=== PATIENT | female | born 1995 | race Caucasian/White ===

== ENCOUNTER 2016-10-31 11:42 | Emergency (ER) | payer MEDICAID ==
[~2016-10-31] VITALS: Ht 162.6 cm; Wt 127.3 kg
[~2016-10-31 11:42] MED LIST: CYMBALTA 60MG60 MG PO; DESYREL 50MG50 MG; GEODON20 MG PO; IBU800 M1 PO; KEPPRA 500MG500 MG PO; KEPPRA1000 MG PO; KLONOPIN 0.5MG0.5 MG PO; KLONOPIN 1MG1 MG PO; KLONOPIN2 MG PO; LAMICTAL 100MG100 MG PO; LAMICTAL XR300 MG PO; LAMICTAL XR50 MG PO; LEVEMIR100 U/ML SQ; LEXAPRO20 MG PO; LYRICA 100MG C100 M1 PO; LYRICA 150MG C150 MG PO; NOVOLOG 100U100 U/M1 SQ; PAXIL 20MG20 MG PO; PAXIL40 MG PO; PERCOCET 325 MG1 TA2 PO; PRENATAL1 TA7 PO; PROAIR HFA0.09 MG/AC IH; STRATTERA 10MG10 MG PO; TOPAMAX 100MG100 M1 PO; TOPAMAX 25MG25 M1 PO; TOPAMAX200 MG PO; ZOLOFT 50MG50 MG PO
[2016-10-31 11:46] VITALS: BP 168/82; TEMP 98.6
[2016-10-31 12:55] LABS: PH 5 (5-8); SQUAMOUS EPITHELIAL 0-2 /hpf; URINE APPEARANCE Hazy; URINE BACTERIA Rare /hpf; URINE BILIRUBIN Negative (NEGATIVE); URINE BLOOD Negative (NEGATIVE); URINE COLOR Amber; URINE GLUCOSE Negative (NEGATIVE); URINE KETONE Negative (NEGATIVE); URINE RBC 0-2 /hpf; URINE UROBILINOGEN Negative (NEGATIVE); URINE WBC 0-2 /hpf
[2016-10-31 13:14] LABS: BASO % 0.3 % (0.0-2.0); EOS # 0.2 (0.0-0.7); EOS % 1.3 % (0-4.0); GRAN # 11.4 (1.4-6.5); GRAN % 73.6 % (42.2-75.2); HEMATOCRIT 40.6 % (37.0-47.0); HEMOGLOBIN 13.7 g/dl (12.5-16.0); LYMPH # 3.1 (1.2-3.4); LYMPH % 20.2 % (20.0-51.0); MEAN CELL VOLUME 79 fl (80.0-100.0); MEAN CORPUSCULAR HEMOGLOBIN 27 pg (27.0-31.0); MEAN CORPUSCULAR HGB CONC 34 g/dl (33.0-37.0); MEAN PLATELET VOLUME 10.8 fl (7.4-10.4); MONO # 0.7 (0.1-0.6); MONO % 4.3 % (1.7-9.3); PLATELET COUNT 346 K/mm3 (130-400); RED BLOOD COUNT 5.16 M/mm3 (4.10-5.30); REDCELL DISTRIBUTION WIDTH-CV 14.3 % (11.5-14.5); WHITE BLOOD COUNT 15.5 K/mm3 (4.8-10.8)
[2016-10-31 13:21] LABS: ADJUSTED CALCIUM 9.3 mg/dL (8.4-10.2); ALBUMIN 4.1 gm/dL (3.5-5.0); C-REACTIVE PROTEIN 2.4 mg/dL (0.0-0.9); CALCIUM 9.4 mg/dL (8.4-10.2); CREATININE, serum 0.69 mg/dL (0.52-1.25); POTASSIUM 4.2 mmol/L (3.4-5.0); TOTAL PROTEIN 7.4 gm/dL (6.4-8.2)
[2016-10-31 13:46] LABS: ADD PATHOLOGY DIFF REVIEW NO
[2016-10-31 13:55] LABS: EOSINOPHIL 3 % (0-4); NEUTROPHILS 69 % (42.0-75.2); TOTAL CELLS COUNTED 100
[2016-10-31 13:56] LABS: POIKILOCYTOSIS 1+
[2016-10-31] MEDS ORDERED: AMOXICILLIN 8751 TAB PO (15:15)
[2016-10-31 15:37] VITALS: PULSE 79
== END 2016-10-31 15:37 | disposition home or self-care (01) ==
LOC: COL.ER 11:42
PROVIDERS: Family Medicine
DX: G40.909 Epilepsy, unspecified, not intractable, without status epilepticus (principal); K80.20 Calculus of gallbladder without cholecystitis without obstruction; E11.9 Type 2 diabetes mellitus without complications; Z79.4 Long term (current) use of insulin

== ENCOUNTER 2016-11-03 21:31 | Inpatient (IN) | payer MEDICAID ==
[~2016-11-03] VITALS: Ht 162.6 cm; Wt 132.8 kg
[~2016-11-03 21:31] MED LIST changes: +AMOXICILLIN 8751 TAB PO
[2016-11-03 21:59] VITALS: BP 141/76; PULSE 91; TEMP 97.9
[2016-11-03] MEDS ORDERED: EFFEXOR 75M75 MG/TAB PO (22:24)
[2016-11-03] MEDS ORDERED: KEPPRA 500MG500 MG PO (22:25)
[2016-11-03] MEDS ORDERED: LATUDA40 MG PO (22:25)
[2016-11-03] MEDS ORDERED: MINIPRESS2 MG PO (22:27)
[2016-11-03] MEDS ORDERED: MULTIPLE VITAMI1 CAP PO (22:28)
[2016-11-03] MEDS ORDERED: SPRINTEC 35 MCG1 TAB PO (22:28)
[2016-11-03] MEDS ORDERED: NORCO 325 MG-51 TAB PO (22:32)
[2016-11-03] MEDS ORDERED: PROTONIX20 MG PO (22:34)
[2016-11-03] MEDS ORDERED: ZOFRAN 4MG T4 MG/TAB PO (22:35)
[2016-11-04] VITALS (9 sets, daily range): BP systolic 106–130; BP diastolic 39–74; PULSE 65–84; TEMP 97.6–98.1
[2016-11-04 04:25] LABS: BASO % 0.2 % (0.0-2.0); EOS # 0.2 (0.0-0.7); GRAN # 7.8 (1.4-6.5); GRAN % 77.5 % (42.2-75.2); HEMATOCRIT 43.9 % (37.0-47.0); HEMOGLOBIN 14.5 g/dl (12.5-16.0); LYMPH # 1.5 (1.2-3.4); LYMPH % 15.1 % (20.0-51.0); MEAN CELL VOLUME 79 fl (80.0-100.0); MEAN CORPUSCULAR HEMOGLOBIN 26 pg (27.0-31.0); MEAN CORPUSCULAR HGB CONC 33 g/dl (33.0-37.0); MEAN PLATELET VOLUME 11.5 fl (7.4-10.4); MONO # 0.5 (0.1-0.6); MONO % 4.9 % (1.7-9.3); PLATELET COUNT 268 K/mm3 (130-400); RED BLOOD COUNT 5.53 M/mm3 (4.10-5.30); REDCELL DISTRIBUTION WIDTH-CV 14.6 % (11.5-14.5)
[2016-11-04 04:45] LABS: ADJUSTED CALCIUM 9.2 mg/dL (8.4-10.2); ALBUMIN 3.7 gm/dL (3.5-5.0); BILIRUBIN,TOTAL 2.3 mg/dL (0.0-1.0); CREATININE, serum 0.68 mg/dL (0.52-1.25); TOTAL PROTEIN 6.9 gm/dL (6.4-8.2)
[2016-11-05] VITALS: BP 100/47; PULSE 80; TEMP 97.8
[2016-11-05 04:11] VITALS: BP 129/75; PULSE 78; TEMP 98.1
[2016-11-05 07:08] LABS: BASO % 0.2 % (0.0-2.0); EOS % 0.2 % (0-4.0); GRAN # 10.6 (1.4-6.5); GRAN % 77.1 % (42.2-75.2); LYMPH # 2.3 (1.2-3.4); LYMPH % 16.7 % (20.0-51.0); MEAN CELL VOLUME 81 fl (80.0-100.0); MEAN CORPUSCULAR HGB CONC 33 g/dl (33.0-37.0); MEAN PLATELET VOLUME 11.4 fl (7.4-10.4); MONO # 0.8 (0.1-0.6); MONO % 5.4 % (1.7-9.3); PLATELET COUNT 300 K/mm3 (130-400); RED BLOOD COUNT 4.55 M/mm3 (4.10-5.30); REDCELL DISTRIBUTION WIDTH-CV 15.1 % (11.5-14.5); WHITE BLOOD COUNT 13.8 K/mm3 (4.8-10.8)
[2016-11-05 07:17] LABS: HEMATOCRIT 36.7 % (37.0-47.0); HEMOGLOBIN 12.1 g/dl (12.5-16.0); MEAN CORPUSCULAR HEMOGLOBIN 27 pg (27.0-31.0)
[2016-11-05 07:18] LABS: ADJUSTED CALCIUM 9.2 mg/dL (8.4-10.2); ALBUMIN 3.3 gm/dL (3.5-5.0); BILIRUBIN,TOTAL 1.3 mg/dL (0.0-1.0); CALCIUM 8.6 mg/dL (8.4-10.2); CREATININE, serum 0.65 mg/dL (0.52-1.25); POTASSIUM 3.5 mmol/L (3.4-5.0); TOTAL PROTEIN 6.3 gm/dL (6.4-8.2)
[2016-11-05] MEDS ORDERED: PERCOCET 325 MG1 TA2 PO (11:44)
[2016-11-05] MEDS ORDERED: KEPPRA1000 MG PO (12:12)
[2016-11-05] MEDS ORDERED: CIPRO 500MG TA500 MG PO (12:38)
[2016-11-05] MEDS ORDERED: FLAGYL500 MG PO (12:38)
[2016-11-05 13:18] VITALS: BP 140/87; PULSE 98
== END 2016-11-05 14:59 | disposition home or self-care (01) | DRG 419 ==
LOC: SURG 21:31
PROVIDERS: Family Medicine; Surgery
PROC: BF131ZZ Fluoroscopy of Gallbladder and Bile Ducts using Low Osmolar Contrast (ICD-10-PCS; 2016-11-04)
PROC: 0FT44ZZ Resection of Gallbladder, Percutaneous Endoscopic Approach (ICD-10-PCS; principal; 2016-11-04 12:00)
DX: K80.43 Calculus of bile duct with acute cholecystitis with obstruction (principal); G40.909 Epilepsy, unspecified, not intractable, without status epilepticus; F43.10 Post-traumatic stress disorder, unspecified; F17.210 Nicotine dependence, cigarettes, uncomplicated
CPT/HCPCS: 99222-AI; 99233-AI; 99239; C1769; J0330; J0690; J1100; J1610; J1885; J1953; J2250; J2270; J2405; J2550; J2704; J2710; J3010; J7120; Q9967

== ENCOUNTER 2016-12-01 17:02 | Emergency (ER) | payer MEDICAID ==
[~2016-12-01] VITALS: Ht 162.6 cm; Wt 127.3 kg
[~2016-12-01 17:02] MED LIST changes: +CIPRO 500MG TA500 MG PO; +EFFEXOR 75M75 MG/TAB PO; +FLAGYL500 MG PO; +LATUDA40 MG PO; +MINIPRESS2 MG PO; +MULTIPLE VITAMI1 CAP PO; +NORCO 325 MG-51 TAB PO; +PROTONIX20 MG PO; +SPRINTEC 35 MCG1 TAB PO; +ZOFRAN 4MG T4 MG/TAB PO
[2016-12-01 17:07] VITALS: BP 139/77; PULSE 95; TEMP 98.1
[2016-12-01] MEDS ORDERED: NORCO 325 MG-51 TAB PO (17:52)
[2016-12-01] MEDS ORDERED: ZOVIRAX51 TP (17:52)
== END 2016-12-01 17:56 | disposition home or self-care (01) ==
LOC: COL.ER 17:02
DX: L73.9 Follicular disorder, unspecified (principal); B00.89 Other herpesviral infection; L01.00 Impetigo, unspecified; F41.9 Anxiety disorder, unspecified; F32.9 Major depressive disorder, single episode, unspecified; F43.10 Post-traumatic stress disorder, unspecified; G40.909 Epilepsy, unspecified, not intractable, without status epilepticus

== ENCOUNTER 2016-12-07 08:00 | Emergency (ER) | payer MEDICAID ==
[~2016-12-07] VITALS: Ht 162.6 cm; Wt 127.3 kg
[~2016-12-07 08:00] MED LIST changes: +ZOVIRAX51 TP
[2016-12-07 08:02] VITALS: TEMP 98.2
[2016-12-07] MEDS ORDERED: PREDNISONE20 MG PO (09:00)
[2016-12-07] MEDS ORDERED: BENADRYL25 M2 PO (09:10)
[2016-12-07] MEDS ORDERED: PEPCID 20MG TAB20 MG PO (09:10)
[2016-12-07 09:21] VITALS: BP 123/70; PULSE 90
== END 2016-12-07 09:21 | disposition home or self-care (01) ==
LOC: COL.ER 08:00
DX: R21 Rash and other nonspecific skin eruption (principal); I10 Essential (primary) hypertension; F31.9 Bipolar disorder, unspecified; F17.210 Nicotine dependence, cigarettes, uncomplicated; Z86.73 Personal history of transient ischemic attack (TIA), and cerebral infarction without residual deficits
CPT/HCPCS: J0561

== ENCOUNTER 2017-06-05 18:35 | Emergency (ER) | payer SELFPAY ==
[~2017-06-05] VITALS: Ht 162.6 cm; Wt 127.3 kg
[~2017-06-05 18:35] MED LIST changes: +BENADRYL25 M2 PO; +PEPCID 20MG TAB20 MG PO; +PREDNISONE20 MG PO
[2017-06-05 18:37] VITALS: BP 142/78; PULSE 98; TEMP 98.8
[2017-06-05] MEDS ORDERED: NORCO 325 MG-51 TAB PO (19:58)
== END 2017-06-05 20:05 | disposition home or self-care (01) ==
LOC: COL.ER 18:35
DX: R68.84 Jaw pain (principal); F17.210 Nicotine dependence, cigarettes, uncomplicated

== ENCOUNTER 2017-06-29 20:33 | Emergency (ER) | payer SELFPAY ==
[~2017-06-29] VITALS: Ht 162.6 cm; Wt 127.3 kg
[2017-06-29 20:40] VITALS: BP 148/95; TEMP 98.4
[2017-06-29] MEDS ORDERED: PEN-VEE K500 MG PO (21:11)
[2017-06-29 21:20] VITALS: PULSE 83
== END 2017-06-29 21:19 | disposition home or self-care (01) ==
LOC: COL.ER 20:33
DX: K08.89 Other specified disorders of teeth and supporting structures (principal); F17.210 Nicotine dependence, cigarettes, uncomplicated

== ENCOUNTER 2017-07-19 10:35 | Emergency (ER) | payer SELFPAY ==
[~2017-07-19] VITALS: Ht 162.6 cm; Wt 127.3 kg
[~2017-07-19 10:35] MED LIST changes: +PEN-VEE K500 MG PO
[2017-07-19 10:50] VITALS: BP 155/85; TEMP 98.2
[2017-07-19 11:46] LABS: COLLECTION METHOD CLEAN CATCH
[2017-07-19 11:52] LABS: PH 5 (5-8); SQUAMOUS EPITHELIAL None Seen /hpf; URINE APPEARANCE Clear; URINE BACTERIA None Seen /hpf; URINE BILIRUBIN Negative (NEGATIVE); URINE BLOOD 2+ (NEGATIVE); URINE COLOR Yellow; URINE GLUCOSE Negative (NEGATIVE); URINE KETONE Negative (NEGATIVE); URINE LEUKOCYTE ESTERASE Negative (NEGATIVE); URINE NITRATE Negative (NEGATIVE); URINE PROTEIN(semi-quant) Negative (NEGATIVE); URINE RBC 0-2 /hpf; URINE UROBILINOGEN Negative (NEGATIVE)
[2017-07-19 13:39] VITALS: PULSE 82
== END 2017-07-19 13:32 | disposition home or self-care (01) ==
LOC: COL.ER 10:35
PROVIDERS: Physician Assistant
DX: S06.0X0A Concussion without loss of consciousness, initial encounter (principal); S00.83XA Contusion of other part of head, initial encounter; G40.909 Epilepsy, unspecified, not intractable, without status epilepticus; F17.210 Nicotine dependence, cigarettes, uncomplicated; W22.09XA Striking against other stationary object, initial encounter

== ENCOUNTER 2017-08-24 13:05 | Day surgery (SDC) | payer BC ==
[~2017-08-24] VITALS: Ht 162.6 cm; Wt 136.7 kg
[2017-08-24 14:07] VITALS: BP 145/101; PULSE 88; TEMP 97.9
[2017-08-24] MEDS ORDERED: EFFEXOR-XR150 MG PO (14:26)
[2017-08-24] MEDS ORDERED: LYRICA 100MG C100 M1 PO (14:27)
[2017-08-24] MEDS ORDERED: DEPAKOTE ER 50500 MG PO (14:28)
[2017-08-24] MEDS ORDERED: VALIUM 10MG10 MG/TAB PO (14:28)
[2017-08-24 16:47] VITALS: TEMP 97.3
[2017-08-24 16:50] VITALS: BP 130/79; PULSE 66
[2017-08-24 17:05] VITALS: BP 135/83; PULSE 68
[2017-08-24 17:20] VITALS: BP 138/95; PULSE 95
== END 2017-08-24 17:31 | disposition home or self-care (01) ==
LOC: SDCO 13:05
DX: K04.7 Periapical abscess without sinus (principal); K00.6 Disturbances in tooth eruption; K01.1 Impacted teeth; G40.909 Epilepsy, unspecified, not intractable, without status epilepticus; F41.9 Anxiety disorder, unspecified; F32.9 Major depressive disorder, single episode, unspecified; E11.9 Type 2 diabetes mellitus without complications; Z91.040 Latex allergy status; Z88.1 Allergy status to other antibiotic agents; F17.210 Nicotine dependence, cigarettes, uncomplicated; K21.9 Gastro-esophageal reflux disease without esophagitis; M79.7 Fibromyalgia; Z86.32 Personal history of gestational diabetes; J45.909 Unspecified asthma, uncomplicated; Z68.43 Body mass index [BMI] 50.0-59.9, adult; I10 Essential (primary) hypertension; E66.01 Morbid (severe) obesity due to excess calories; Z68.42 Body mass index [BMI] 45.0-49.9, adult; F43.10 Post-traumatic stress disorder, unspecified; F31.9 Bipolar disorder, unspecified
CPT/HCPCS: J0295; J1100; J2250; J2704; J3010; J7120

== ENCOUNTER 2017-09-28 10:31 | Emergency (ER) | payer BC ==
[~2017-09-28] VITALS: Ht 160 cm; Wt 127.3 kg
[~2017-09-28 10:31] MED LIST changes: +DEPAKOTE ER 50500 MG PO; +EFFEXOR-XR150 MG PO; +VALIUM 10MG10 MG/TAB PO
[2017-09-28 10:40] VITALS: BP 138/72; TEMP 98.1
[2017-09-28] MEDS ORDERED: PROZAC 20MG20 MG PO (10:44)
[2017-09-28 11:33] LABS: COLLECTION METHOD CLEAN CATCH
[2017-09-28] MEDS ORDERED: FLEXERIL 1010 MG/TAB PO (11:37)
[2017-09-28 11:49] LABS: MUCOUS Present /lpf; PH 5 (5-8); URINE APPEARANCE Clear; URINE BACTERIA None Seen /hpf; URINE BILIRUBIN Negative (NEGATIVE); URINE BLOOD 3+ (NEGATIVE); URINE COLOR Yellow; URINE GLUCOSE Negative (NEGATIVE); URINE KETONE Trace (NEGATIVE); URINE LEUKOCYTE ESTERASE Negative (NEGATIVE); URINE NITRATE Negative (NEGATIVE); URINE PROTEIN(semi-quant) Negative (NEGATIVE); URINE RBC 20-50 /hpf; URINE UROBILINOGEN Negative (NEGATIVE)
[2017-09-28 12:15] VITALS: PULSE 88
== END 2017-09-28 12:15 | disposition home or self-care (01) ==
LOC: COL.ER 10:31
PROVIDERS: Physician Assistant
DX: M46.1 Sacroiliitis, not elsewhere classified (principal); G40.909 Epilepsy, unspecified, not intractable, without status epilepticus; F31.9 Bipolar disorder, unspecified

== ENCOUNTER 2017-10-08 11:36 | Emergency (ER) | payer BC ==
[~2017-10-08] VITALS: Ht 160 cm; Wt 127.3 kg
[~2017-10-08 11:36] MED LIST changes: +FLEXERIL 1010 MG/TAB PO; +PROZAC 20MG20 MG PO
[2017-10-08 11:40] VITALS: TEMP 98.5
[2017-10-08 12:14] LABS: BASO # 0.1 (0.0-0.2); BASO % 0.4 % (0.0-2.0); EOS # 0.2 (0.0-0.7); EOS % 1.7 % (0-4.0); GRAN # 9.7 (1.4-6.5); GRAN % 68.7 % (42.2-75.2); HEMATOCRIT 42.7 % (37.0-47.0); HEMOGLOBIN 14.4 g/dl (12.5-16.0); LYMPH # 3.5 (1.2-3.4); LYMPH % 24.7 % (20.0-51.0); MEAN CELL VOLUME 80 fl (80.0-100.0); MEAN CORPUSCULAR HEMOGLOBIN 27 pg (27.0-31.0); MEAN CORPUSCULAR HGB CONC 34 g/dl (33.0-37.0); MONO # 0.6 (0.1-0.6); PLATELET COUNT 296 K/mm3 (130-400); RED BLOOD COUNT 5.36 M/mm3 (4.10-5.30); REDCELL DISTRIBUTION WIDTH-CV 14.3 % (11.5-14.5)
[2017-10-08 12:24] LABS: ALBUMIN 3.7 gm/dL (3.5-5.0); BILIRUBIN,TOTAL 0.4 mg/dL (0.0-1.0); CALCIUM 8.6 mg/dL (8.4-10.2); CREATININE, serum 0.64 mg/dL (0.52-1.25); POTASSIUM 4.1 mmol/L (3.4-5.0); TOTAL PROTEIN 7.1 gm/dL (6.4-8.2)
[2017-10-08 12:40] LABS: PROLACTIN 6.3 ng/mL (3.0-18.6)
[2017-10-08 12:41] LABS: VALPROIC ACID (DEPAKENE) 57.3 ug/mL (50.0-100.0)
[2017-10-08 13:56] VITALS: BP 113/77; PULSE 86
== END 2017-10-08 14:00 | disposition home or self-care (01) ==
LOC: COL.ER 11:36
PROVIDERS: Emergency Medicine
DX: G40.909 Epilepsy, unspecified, not intractable, without status epilepticus (principal); F43.10 Post-traumatic stress disorder, unspecified; F17.210 Nicotine dependence, cigarettes, uncomplicated; Z90.49 Acquired absence of other specified parts of digestive tract; Z98.890 Other specified postprocedural states

== ENCOUNTER 2017-12-13 15:07 | Emergency (ER) | payer SELFPAY ==
[~2017-12-13] VITALS: Ht 160 cm; Wt 118.2 kg
[2017-12-13 15:09] VITALS: BP 134/97; PULSE 107; TEMP 98.4
[2017-12-13] MEDS ORDERED: KLONOPIN2 MG PO (15:19)
[2017-12-13] MEDS ORDERED: ADDERALL5 MG PO (15:20)
== END 2017-12-13 15:41 | disposition home or self-care (01) ==
LOC: COL.ER 15:07
DX: S81.811A Laceration without foreign body, right lower leg, initial encounter (principal); G40.909 Epilepsy, unspecified, not intractable, without status epilepticus; F60.3 Borderline personality disorder; F17.210 Nicotine dependence, cigarettes, uncomplicated; W26.8XXA Contact with other sharp object(s), not elsewhere classified, initial encounter

== ENCOUNTER 2017-12-20 14:57 | Emergency (ER) | payer SELFPAY ==
[~2017-12-20] VITALS: Ht 160 cm; Wt 118.2 kg
[~2017-12-20 14:57] MED LIST changes: +ADDERALL5 MG PO
[2017-12-20 15:01] VITALS: BP 135/74; TEMP 98.1
[2017-12-20 15:26] VITALS: PULSE 100
== END 2017-12-20 15:26 | disposition home or self-care (01) ==
LOC: COL.ER 14:57
DX: T81.33XA Disruption of traumatic injury wound repair, initial encounter (principal); G40.909 Epilepsy, unspecified, not intractable, without status epilepticus; F60.3 Borderline personality disorder

== ENCOUNTER 2018-01-15 20:18 | Emergency (ER) | payer SELFPAY ==
[~2018-01-15] VITALS: Ht 160 cm; Wt 118.2 kg
[2018-01-15 20:20] VITALS: BP 155/85; TEMP 98.7
[2018-01-15] MEDS ORDERED: PROZAC40 MG PO (20:34)
[2018-01-15] MEDS ORDERED: ADDERALL20 MG PO (20:34)
[2018-01-15] MEDS ORDERED: DEPAKOTE500 MG (20:35)
[2018-01-15] MEDS ORDERED: DEPAKOTE500 MG PO (20:36)
[2018-01-15 21:15] LABS: BASO # 0.1 (0.0-0.2); BASO % 0.4 % (0.0-2.0); EOS # 0.2 (0.0-0.7); EOS % 1.5 % (0-4.0); GRAN % 69.2 % (42.2-75.2); HEMOGLOBIN 14.5 g/dl (12.5-16.0); LYMPH # 3.4 (1.2-3.4); LYMPH % 23.3 % (20.0-51.0); MEAN CELL VOLUME 83 fl (80.0-100.0); MEAN CORPUSCULAR HEMOGLOBIN 29 pg (27.0-31.0); MEAN CORPUSCULAR HGB CONC 35 g/dl (33.0-37.0); MEAN PLATELET VOLUME 10.9 fl (7.4-10.4); MONO # 0.8 (0.1-0.6); MONO % 5.3 % (1.7-9.3); PLATELET COUNT 323 K/mm3 (130-400); RED BLOOD COUNT 5.09 M/mm3 (4.10-5.30); REDCELL DISTRIBUTION WIDTH-CV 13.3 % (11.5-14.5)
[2018-01-15 21:21] LABS: ALBUMIN 3.9 gm/dL (3.5-5.0); BILIRUBIN,TOTAL 0.3 mg/dL (0.0-1.0); CALCIUM 9.4 mg/dL (8.4-10.2); CREATININE, serum 0.77 mg/dL (0.52-1.25); POTASSIUM 3.9 mmol/L (3.4-5.0); TOTAL PROTEIN 7.2 gm/dL (6.4-8.2)
[2018-01-15] MEDS ORDERED: BACTRIM DS 8001 TAB PO (21:28)
[2018-01-15 21:36] LABS: ERYTHROCYTE SEDIMENTATION RATE 9 mm/hr (0-20)
[2018-01-15 21:54] VITALS: PULSE 86
== END 2018-01-15 21:54 | disposition home or self-care (01) ==
LOC: COL.ER 20:18
PROVIDERS: Physician Assistant
DX: L03.116 Cellulitis of left lower limb (principal); F41.9 Anxiety disorder, unspecified; F60.3 Borderline personality disorder; F31.9 Bipolar disorder, unspecified; F43.10 Post-traumatic stress disorder, unspecified; G43.909 Migraine, unspecified, not intractable, without status migrainosus; F17.210 Nicotine dependence, cigarettes, uncomplicated; Z79.891 Long term (current) use of opiate analgesic

== ENCOUNTER 2018-01-17 13:33 | Emergency (ER) | payer SELFPAY ==
[~2018-01-17] VITALS: Ht 162.6 cm; Wt 118.2 kg
[~2018-01-17 13:33] MED LIST changes: +ADDERALL20 MG PO; +BACTRIM DS 8001 TAB PO; +DEPAKOTE500 MG; +DEPAKOTE500 MG PO; +PROZAC40 MG PO
[2018-01-17 13:40] VITALS: TEMP 98.4
[2018-01-17 15:56] LABS: BASO # 0.1 (0.0-0.2); BASO % 0.4 % (0.0-2.0); EOS # 0.3 (0.0-0.7); EOS % 1.7 % (0-4.0); GRAN % 66.9 % (42.2-75.2); HEMATOCRIT 46.1 % (37.0-47.0); HEMOGLOBIN 15.7 g/dl (12.5-16.0); LYMPH # 3.9 (1.2-3.4); LYMPH % 26.1 % (20.0-51.0); MEAN CELL VOLUME 83 fl (80.0-100.0); MEAN CORPUSCULAR HEMOGLOBIN 28 pg (27.0-31.0); MEAN CORPUSCULAR HGB CONC 34 g/dl (33.0-37.0); MEAN PLATELET VOLUME 10.9 fl (7.4-10.4); MONO # 0.7 (0.1-0.6); MONO % 4.6 % (1.7-9.3); PLATELET COUNT 328 K/mm3 (130-400); RED BLOOD COUNT 5.57 M/mm3 (4.10-5.30); REDCELL DISTRIBUTION WIDTH-CV 13.5 % (11.5-14.5)
[2018-01-17] MEDS ORDERED: NORCO 325 MG-51 TAB PO (16:51)
[2018-01-17 17:09] VITALS: BP 135/92; PULSE 96
[2018-01-20] MEDS ORDERED: CIPRO 500MG TA500 MG PO (11:15)
== END 2018-01-17 17:10 | disposition home or self-care (01) ==
LOC: COL.ER 13:33
PROVIDERS: Family Medicine
DX: G43.909 Migraine, unspecified, not intractable, without status migrainosus (principal); S90.862A Insect bite (nonvenomous), left foot, initial encounter; M79.7 Fibromyalgia; M79.672 Pain in left foot; G89.29 Other chronic pain; Z88.1 Allergy status to other antibiotic agents; W57.XXXA Bitten or stung by nonvenomous insect and other nonvenomous arthropods, initial encounter
CPT/HCPCS: J1200; J1885

== ENCOUNTER 2018-02-10 10:27 | Emergency (ER) | payer SELFPAY ==
[~2018-02-10] VITALS: Ht 160 cm; Wt 109.1 kg
[2018-02-10 10:30] VITALS: BP 141/84; TEMP 98.2
[2018-02-10] MEDS ORDERED: ULTRAM 50MG TAB50 MG PO (11:47)
[2018-02-10 11:50] VITALS: PULSE 90
== END 2018-02-10 11:51 | disposition home or self-care (01) ==
LOC: COL.ER 10:27
DX: S62.623A Displaced fracture of middle phalanx of left middle finger, initial encounter for closed fracture (principal); F32.9 Major depressive disorder, single episode, unspecified; F41.9 Anxiety disorder, unspecified; F17.210 Nicotine dependence, cigarettes, uncomplicated; M79.7 Fibromyalgia; X50.0XXA Overexertion from strenuous movement or load, initial encounter; Y92.79 Other farm location as the place of occurrence of the external cause

== ENCOUNTER 2022-03-27 05:36 | Day surgery (SDC) | payer MEDICARE ==
[2022-03-27] VITALS (8 sets, daily range): BP systolic 120–139; BP diastolic 53–87; PULSE 75–84; TEMP 97.5–98.2
[~2022-03-27] VITALS: Ht 160 cm; Wt 168.6 kg
[~2022-03-27 05:36] MED LIST changes: +ULTRAM 50MG TAB50 MG PO
[2022-03-27] MEDS ORDERED: ADDERALL20 MG PO (06:03)
[2022-03-27] MEDS ORDERED: PROZAC 20MG20 MG PO (06:04)
[2022-03-27] MEDS ORDERED: LYRICA 150MG C150 MG PO (06:05)
[2022-03-27] MEDS ORDERED: PRILOSEC 20MG20 MG PO (06:05)
[2022-03-27] MEDS ORDERED: PRINIVIL10 MG PO (06:06)
[2022-03-27] MEDS ORDERED: ATARAX 25MG25 MG/TAB PO (06:08)
[2022-03-27] MEDS ORDERED: PROAIR HFA0.09 MG/AC IH (06:09)
[2022-03-27] MEDS ORDERED: IPRATROPIUM BROM3 M1 IH (06:09)
--- NOTE | 2022-03-27 06:59 | NUR ---
0650 - PT ambulated to bathroom, then back to bed independently w/o difficulty. Call keys is within reach if needed. Side rails x2
--- NOTE | 2022-03-27 09:47 | NUR ---
0905 - PT arrives from PACU w/ Clementine RN; monitors applied. PT states pain 7-8/10. PT is tolerating ice chips well; snack and drink provided. PT oriented to room and call keys, within reach. Bedside report obtained. O2 continues at 2L via nasal cannula. Boyfriend remains present. Side rails x2. 0910 - ASSISTANT READING TEACHER contacted regarding PT pain; new orders recieved. 0915 - PO medication administered. PT is A&Ox4. Call keys within reach. 0920 - Vitals obtained. Additonal ice water provided. PT has finished snack. Call keys remains within reach. 0935 - VSS. PT denies nausea. IV disconnected. PT minimally assissted out of bed by RN to bathroom; PT void, then ambulates back to room. Side rails x2. PT expressed desire to be discharged.
--- NOTE | 2022-03-27 10:26 | NUR ---
0950 - was contacted regarding discharge orders; voicemail left. 0914 - DR office was contacted regarding discharge orders; voicemail left.
--- NOTE | 2022-03-27 10:38 | NUR ---
0950 - VSS. Call keys within reach. 1020 - VSSs. Call keys within reach. Boyfriend left the facility. Service dog remains.
--- NOTE | 2022-03-27 11:52 | NUR ---
1050 - VSS. Additional ice water provided. Call keys remains within reach if needed. 1150 - VSS. IV discotinued. Catheter tip intact and pressure bandage applied. NO redness or swelling noted. DC instructions and educational material reviewed w/ PT who verbalized understanding and signed the realted paperwork. Questions answered to PT satisfaction. PT changed into her personal clothes without difficulty; then ambulated to bathroom w/ service dog. Then back to bed to watch TV. Call keys remains within reach.
--- NOTE | 2022-03-27 12:16 | NUR ---
1210 - PT dismissed from [facility] via wheelchair by Carmela JASSO. PT has DC packet and personal belongings; PT was transferred into the care of Joao who is driving private van.
== END 2022-03-27 12:15 | disposition home or self-care (01) ==
LOC: SDCO 05:36
DX: J35.01 Chronic tonsillitis (principal); E01.0 Iodine-deficiency related diffuse (endemic) goiter; G47.33 Obstructive sleep apnea (adult) (pediatric); F17.210 Nicotine dependence, cigarettes, uncomplicated; E66.9 Obesity, unspecified; Z68.44 Body mass index [BMI] 60.0-69.9, adult
CPT/HCPCS: J0330; J2405; J2704; J3010; J7120